=== PATIENT | male | born 1980 | race Caucasian/White ===

== ENCOUNTER 2020-11-17 10:59 | Emergency (ER) | payer BC ==
[~2020-11-17] VITALS: Ht 177.8 cm; Wt 99.8 kg
[2020-11-17 11:00] VITALS: BP_SYST 113
[2020-11-17] MEDS ORDERED: FAMO40TA71 PO (11:31)
[2020-11-17 11:47] VITALS: BP_SYST 118
== END 2020-11-17 11:34 | disposition home or self-care (01) ==
LOC: SED 10:59
DX: K21.9 Gastro-esophageal reflux disease without esophagitis (principal)
CPT/HCPCS: 93005; 99282

== ENCOUNTER 2024-06-07 20:18 | Emergency (ER) | payer BC ==
[~2024-06-07] VITALS: Ht 177.8 cm; Wt 97.1 kg
[~2024-06-07 20:18] MED LIST: FAMO40TA71 PO
[2024-06-07 20:37] VITALS: BP_SYST 113; PULSE 79; RESP 18; TEMP 98.7; O2SAT 98
[2024-06-07 21:34] LABS: BILIRUBIN,URINE NEGATIVE (NEGATIVE); BLOOD, URINE NEGATIVE (NEGATIVE); CLARITY/URINE CLEAR (CLEAR); COLOR,URINE YELLOW (YELLOW); GLUCOSE,URINE NEGATIVE (NEGATIVE); KETONES,URINE NEGATIVE (NEGATIVE); LEUKOCYTE ESTERASE ,URINE NEGATIVE (NEGATIVE); NITRITE, URINE NEGATIVE (NEGATIVE); PROTEIN URINE NEGATIVE (NEGATIVE); UROBILINOGEN,URINE 0.2 (0.2-1.0)
[2024-06-08 00:40] VITALS: BP_SYST 115; PULSE 81; RESP 18; TEMP 97; O2SAT 97
[2024-06-08] MEDS ORDERED: PIPERACILLIN/TAZOBACTAM 3.375 GM/VIAL (ZOSYN) IV ONE (02:41)
[2024-06-08] MEDS: PIPERACILLIN/TAZO 3.375 GM in NS 50 ML IV ONE (02:49)
[2024-06-08] MEDS ORDERED: METR-154 PO (03:46)
[2024-06-08] MEDS ORDERED: CIPR500T5 PO (03:46)
== END 2024-06-08 04:05 | disposition home or self-care (01) ==
LOC: SED 20:18
DX: K57.92 Diverticulitis of intestine, part unspecified, without perforation or abscess without bleeding (principal); R10.32 Left lower quadrant pain; N50.812 Left testicular pain; N50.811 Right testicular pain; Z79.899 Other long term (current) drug therapy; Z79.2 Long term (current) use of antibiotics
CPT/HCPCS: 99285; 74176; 81001; 87040; 36415; 76870; 81003; 96365; J2543